=== PATIENT | female | born 1940 | race Caucasian/White ===

== ENCOUNTER → 2017-11-26 | Day surgery (SDC) | payer OTHER ==
--- NOTE | 2017-11-27 10:22 | PATH ---
Surgical Pathology Report Patient Name: PRISCILLA WILKINSON [facility]. Rec. #: [id number] /Age/Gender: 1940 (Age: 77) / F Account: [id number] Location: RAD[facility]OLOGY [facility] Taken: 11/26/2017 Received: 11/26/2017 Reported: 11/27/2017 Physicians: Leo Valentin M.D. 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 Electronically Signed Priscilla Gibbs M.D. Gross Description Received in formalin labeled "left 12:30," are 6 bell-yellow, cylindrical portions of fibroadipose tissue ranging from 0.2-1.3 cm in length and averaging 0.1 cm in diameter. The specimens are submitted in toto in one cassette. Total formalin fixation time: Approximately 6 hours 11/26/2017 saudi/11/26/2017
== END | disposition home or self-care (01) ==
LOC: JRADUS-SUR 07:59
PROVIDERS: ATTEND Family Medicine
PROC: 0HBU3ZX Excision of Left Breast, Percutaneous Approach, Diagnostic (ICD-10-PCS; principal; 2017-11-26)
DX: N60.92 Unspecified benign mammary dysplasia of left breast (principal); N60.22 Fibroadenosis of left breast
CPT/HCPCS: 19083; 87899; 88305-TC; A4648

== ENCOUNTER 2023-05-09 15:20 | Emergency (ER) | payer OTHER ==
[2023-05-09 15:33] VITALS: BP 139/68; PULSE 92; RESP 18; TEMP 98.6; BMI 28.3
== END 2023-05-09 17:04 | disposition home or self-care (01) ==
LOC: JER 15:20 → JERFT 15:20
DX: M79.605 Pain in left leg (principal); I83.812 Varicose veins of left lower extremity with pain
CPT/HCPCS: 99282-25